=== PATIENT | female | born 1975 | race Caucasian/White ===

== ENCOUNTER 2024-04-01 05:10 | Emergency (ER) | payer BC ==
[~2024-04-01] VITALS: Ht 152.4 cm; Wt 63.5 kg
[2024-04-01 05:11] VITALS: BP 115/65; PULSE 68; RESP 18; TEMP 97.1; O2SAT 99
[2024-04-01 06:35] VITALS: O2SAT 99
[2024-04-01] MEDS ORDERED: LORazepam 2 MG/ML VIAL IVP ONE (06:35)
[2024-04-01] MEDS ORDERED: WATER STERILE 10 ML MC ONE (07:01)
[2024-04-01 07:05] LABS: BASOPHILS # (AUTO) 0.1 K/uL (0.00-0.22); BASOPHILS % (AUTO) 0.7 % (0.0-2.0); EOSINOPHILS # (AUTO) 0.2 K/uL (0-0.4); EOSINOPHILS % (AUTO) 1.9 % (0.0-4.0); HEMATOCRIT 33.7 % (36-48); HEMOGLOBIN 10.8 g/dL (12.0-16.0); LYMPHOCYTES # (AUTO) 2.4 K/uL (2.5-16.5); LYMPHOCYTES % (AUTO) 24.6 % (20.5-51.1); MEAN CORPUSCULAR HEMOGLOBIN 18 pg (27-31); MEAN CORPUSCULAR HGB CONC 32 g/dL (33-37); MEAN CORPUSCULAR VOLUME 55.6 fL (80-94); MONOCYTES # (AUTO) 1.1 K/uL (0.8-1.0); MONOCYTES % (AUTO) 10.8 % (1.7-9.3); NEUTROPHILS # (AUTO) 6.1 K/uL (1.8-7.7); PLATELET COUNT (AUTO) 462 K/uL (140-450); RED BLOOD CELL COUNT(AUTO) 6.06 MIL/uL (4.20-5.40); RED CELL DISTRIBUTION WIDTH 16.6 % (11.6-13.7); WHITE BLOOD COUNT (AUTO) 9.9 K/uL (4.8-10.8)
[2024-04-01] MEDS: OLANZapine 10 MG VIAL IM ONE (07:07)
[2024-04-01 07:14] LABS: CALCIUM 8.7 mg/dL (8.5-10.1); CARBON DIOXIDE 33.7 mmol/L (21-32); CREATININE 0.5 mg/dL (0.6-1.3); POTASSIUM 3.7 mmol/L (3.5-5.1)
[2024-04-01 07:22] LABS: ALCOHOL, BLOOD < 3 mg/dL (<10)
[2024-04-01 07:24] LABS: ACETAMINOPHEN < 0.5 ug/ml (10-30); SALICYLATE < 2.8 mg/dL (2.8-20.0)
[2024-04-01] MEDS: MIDAZOLAM 2 MG/2 ML VIAL IM ONE (08:39)
[2024-04-01] MEDS ORDERED: MIDAZOLAM 2 MG/2 ML VIAL ONE (08:43)
[2024-04-01 11:47] LABS: AMPHETAMINE, URINE NEGATIVE ng/ml (NEG <=1000); BARBITURATE, URINE NEGATIVE ng/ml (NEG <=200); BENZODIAZEPINE, URINE NEGATIVE ng/mL (NEG <=200); CANNABINOID, URINE NEGATIVE ng/mL (NEG <=50); COCAINE, URINE NEGATIVE ng/mL (NEG <=300); OPIATE, URINE NEGATIVE ng/mL (NEG <=2000); PHENCYCLIDINE SCREEN,URINE NEGATIVE ng/mL (NEG <=25)
[2024-04-01 11:48] LABS: APPEARANCE,URINE CLEAR (CLEAR); COLOR,URINE YELLOW (YELLOW)
[2024-04-01 11:50] LABS: BILIRUBIN,URINE NEGATIVE (NEGATIVE); BLOOD, URINE 1+ (NEGATIVE); LEUKOCYTE ESTERASE ,URINE NEGATIVE (NEGATIVE); NITRITE, URINE NEGATIVE (NEGATIVE); PROTEIN,URINE NEGATIVE (NEGATIVE); UGLUCOSE NEGATIVE (NEGATIVE); UROBILINOGEN,URINE 0.2 EU/dL (0.2 - 1)
[2024-04-01 12:14] LABS: BACTERIA,URINE OCCASSIONAL /HPF (None Seen); RBC,URINE 0-5 /HPF (0-5); SQUAMOUS EPITHELIAL CELL,UR 0-3 (FEW) /LPF (0-3 (FEW)); WBC,URINE 0-5 /HPF (0-5)
[2024-04-01 19:45] VITALS: O2SAT 99
[2024-04-01] MEDS: OLANZapine 5 MG ODT PO SCH (21:10)
[2024-04-01] MEDS: DIVALPROEX 500 MG TABEC PO SCH (21:10)
[2024-04-01 22:20] VITALS: O2SAT 99
[2024-04-01 23:47] VITALS: BP 116/67; PULSE 96; RESP 18; TEMP 97.1; O2SAT 99
== END 2024-04-01 23:49 ==
LOC: MED 05:10
DX: S22.31XA Fracture of one rib, right side, initial encounter for closed fracture (principal); F31.9 Bipolar disorder, unspecified; R45.1 Restlessness and agitation; R41.82 Altered mental status, unspecified; Z88.0 Allergy status to penicillin; Z88.6 Allergy status to analgesic agent; X58.XXXA Exposure to other specified factors, initial encounter; Y92.89 Other specified places as the place of occurrence of the external cause; Y93.89 Activity, other specified; Y99.8 Other external cause status
CPT/HCPCS: 36415; 70450; 71045; 80048; 80305; 81001; 81025; 84702; 85025; 93005; 96372; 99291; G0480; G0482; J2060; J2250; J3490; Q0092